=== PATIENT | male | born 1960 | race Two or more races ===

== ENCOUNTER 2020-01-20 15:44 | Outpatient (REF) | payer OTHER, SELFPAY ==
[2020-01-20 17:29] LABS: Rheumatoid Factor < 15.0 IU/mL (<15.0)
[2020-01-23 21:47] LABS: Cyclic Citrullinated Peptide <16 UNITS
== END 2020-01-20 15:45 | disposition home or self-care (01) ==
LOC: HO.LAB 15:44
PROVIDERS: PCP Internal Medicine; Referring Provider Internal Medicine; Visit Provider Student in an Organized Health Care Education/Training Program
DX: M19.042 Primary osteoarthritis, left hand (principal); M19.041 Primary osteoarthritis, right hand; M79.645 Pain in left finger(s); M79.644 Pain in right finger(s); M25.561 Pain in right knee; I25.10 Atherosclerotic heart disease of native coronary artery without angina pectoris; M10.9 Gout, unspecified; G47.33 Obstructive sleep apnea (adult) (pediatric); Z95.1 Presence of aortocoronary bypass graft
CPT/HCPCS: 86200; 86431